=== PATIENT | female | born 1955 | race Two or more races ===

== ENCOUNTER 2016-10-29 11:59 | Inpatient (IN) | payer MEDICAID, OTHER ==
[~2016-10-29] VITALS: Ht 162.6 cm; Wt 68.4 kg
[2016-10-29 13:24] LABS: Basophils # (auto) 0.2 uL; Basophils % (auto) 2.1 % (0.0-2.0); Eosinophils # (auto) 0.1 uL; Eosinophils % (auto) 0.6 % (0.0-7.0); Hemoglobin 11.6 g/dL (12.2-16.2); Lymphocytes # (auto) 1.5 uL; Lymphocytes % (auto) 14.5 % (10.0-50.0); Mean Corpuscular Hemoglobin 30.9 pg (28.0-32.0); Mean Corpuscular Hgb Conc. 33.2 g/dL (32.0-36.0); Mean Corpuscular Volume 93.1 fL (80.0-100.0); Mean Platelet Volume 8.9 fL (7.4-10.4); Monocytes # (auto) 0.9 uL; Neutrophils # (auto) 7.8 uL; Neutrophils % (auto) 73.8 % (37.0-80.0); Platelet Count (auto) 423 10^3/uL (140-450); Red Cell Distribution Width 14.3 % (11.6-16.0); White Blood Cell 10.5 10^3/uL (4.4-10.8)
[2016-10-29 13:44] LABS: Albumin 2.2 g/dL (3.4-5.0); BUN/Creatinine Ratio 28.2; Bilirubin, Total 0.6 mg/dL (0.2-1.0); Calcium 8.3 mg/dL (8.5-10.1); Potassium 3.1 mmol/L (3.5-5.1); Total Protein 7.4 g/dL (6.4-8.2)
[2016-10-29 15:02] LABS: Urine Bilirubin Negative (Negative); Urine Color Yellow (Yellow); Urine Glucose Normal (Normal); Urine Ketone Negative (Negative); Urine Mucus FEW (None Seen); Urine Nitrite Negative (Negative); Urine RBC 10 /hpf (0 - 4); Urine Squamous Epithelial Cell FEW /hpf (<5); Urine pH 6.5 (5.0-8.0)
[2016-10-29 15:16] LABS: Urine Blood 1+ /uL (Negative)
[2016-10-29] MEDS ORDERED: SODIUM CHLORIDE 0.9% 1,000 ML IVB ONE (15:48)
[2016-10-29] MEDS ORDERED: cefTRIAXone 1GM/50ML D5W 50 ML IV ONE (16:00)
[2016-10-29] MEDS ORDERED: AZITHROMYCIN 500MG/D5W 250ML 250 ML IV ONE (17:30)
[2016-10-29] MEDS ORDERED: PIPERACILLIN-TAZOB 3.375GM 100 ML IV ONE (17:30)
[2016-10-29] MEDS ORDERED: POTASSIUM CHLORIDE 8 MEQ TAB PO ONE (17:45)
[2016-10-29] MEDS ORDERED: TEMAZEPAM 15 MG CAP PO PRN (17:45)
[2016-10-29] MEDS ORDERED: DOCUSATE SOD 100 MG CAP PO PRN (17:45)
[2016-10-29] MEDS ORDERED: ONDANSETRON HCL 4 MG/2 ML VIAL IV PRN (17:45)
[2016-10-29] MEDS ORDERED: ACETAMINOPHEN 325 MG TAB PO PRN (17:45)
[2016-10-29] MEDS ORDERED: MORPHINE SULF INJ 2 MG/ML SYRINGE 1ML IV PRN (17:45)
[2016-10-29] MEDS ORDERED: NITROGLYCERIN 0.4 MG SL TAB SL PRN (17:45)
[2016-10-29] MEDS: MULTIPLE VITAMIN TAB PO SCH (18:07)
[2016-10-29] MEDS: SODIUM CHLORIDE 0.9% 1,000 ML IV SCH (18:24)
[2016-10-29] MEDS: BOOST PLUS 8 ounce PO SCH ×2 (18:34→22:00)
[2016-10-29] MEDS: ALBUTEROL SULF 2.5 MG/0.5ML(0.5%) NEB SOLN NEB SCH (18:51)
[2016-10-29] MEDS: IPRATROPIUM BROM 0.5 MG/2.5ML INH SOL NEB SCH (18:51)
[2016-10-29 22:00] VITALS: BP 137/76
[2016-10-29] MEDS: HYDROcodone-ACET 5/325MG TAB PO PRN (22:27)
[2016-10-29] MEDS: FAMOTIDINE 20 MG TAB PO SCH (22:27)
[2016-10-29 23:02] VITALS: BP 137/76
[2016-10-30 00:06] VITALS: BP 137/76
[2016-10-30] MEDS: ALBUTEROL SULF 2.5 MG/0.5ML(0.5%) NEB SOLN NEB SCH ×4 (00:27→19:05)
[2016-10-30] MEDS: IPRATROPIUM BROM 0.5 MG/2.5ML INH SOL NEB SCH ×4 (00:27→19:05)
[2016-10-30] MEDS ORDERED: METOPROLOL TARTRATE 1MG/1ML-5ML VIAL IV ONE (01:30)
[2016-10-30] MEDS: SODIUM CHLORIDE 0.9% 1,000 ML IV SCH ×3 (02:04→20:53)
[2016-10-30 04:34] VITALS: BP 123/77
[2016-10-30] MEDS: BOOST PLUS 8 ounce PO SCH ×4 (05:07→20:52)
[2016-10-30] MEDS ORDERED: DIGOXIN (250MCG/ML) 2 ML AMPULE IV ONE ×3 (06:00→18:00)
[2016-10-30 06:41] LABS: Basophils # (auto) 0 uL; Basophils % (auto) 0.2 % (0.0-2.0); Eosinophils # (auto) 0 uL; Eosinophils % (auto) 0.5 % (0.0-7.0); Hematocrit 32.6 % (36.0-46.0); Hemoglobin 10.5 g/dL (12.2-16.2); Lymphocytes # (auto) 1.1 uL; Lymphocytes % (auto) 11.8 % (10.0-50.0); Mean Corpuscular Hemoglobin 31.2 pg (28.0-32.0); Mean Corpuscular Hgb Conc. 32.3 g/dL (32.0-36.0); Mean Corpuscular Volume 96.6 fL (80.0-100.0); Monocytes % (auto) 9.9 % (0.0-12.0); Neutrophils # (auto) 7.5 uL; Neutrophils % (auto) 77.6 % (37.0-80.0); Platelet Count (auto) 438 10^3/uL (140-450); Red Cell Distribution Width 14.4 % (11.6-16.0); White Blood Cell 9.7 10^3/uL (4.4-10.8)
[2016-10-30 06:52] LABS: Potassium 3.2 mmol/L (3.5-5.1)
[2016-10-30 06:57] LABS: BUN/Creatinine Ratio 21.4
[2016-10-30 07:16] LABS: Bilirubin, Total 0.4 mg/dL (0.2-1.0); Total Protein 6.6 g/dL (6.4-8.2)
[2016-10-30] MEDS: cefTRIAXone 1GM/50ML D5W 50 ML IV SCH (08:46)
[2016-10-30] MEDS ORDERED: POTASSIUM CHL 20 Meq TABLET PO ONE (11:15)
[2016-10-30] MEDS: MULTIPLE VITAMIN TAB PO SCH (12:21)
[2016-10-30] MEDS: AZITHROMYCIN 500MG/D5W 250ML 250 ML IV SCH (12:21)
[2016-10-30] MEDS: FAMOTIDINE 20 MG TAB PO SCH ×2 (12:21→20:51)
[2016-10-30] MEDS ORDERED: ENOXAPARIN SOD 80 MG/0.8ML SYRINGE SC ONE (12:45)
[2016-10-30 12:47] VITALS: BP 138/74
[2016-10-30 17:25] VITALS: BP 170/90
[2016-10-30 17:29] VITALS: BP 95/65
[2016-10-30] MEDS: HYDROcodone-ACET 5/325MG TAB PO PRN (20:50)
[2016-10-30] MEDS: METOPROLOL TARTRATE 25 MG TAB PO SCH (20:52)
[2016-10-30] MEDS: ENOXAPARIN SOD 80 MG/0.8ML SYRINGE SC SCH (20:53)
[2016-10-30 22:12] VITALS: BP 127/73
[2016-10-31] MEDS: IPRATROPIUM BROM 0.5 MG/2.5ML INH SOL NEB SCH ×4 (00:20→18:15)
[2016-10-31] MEDS: ALBUTEROL SULF 2.5 MG/0.5ML(0.5%) NEB SOLN NEB SCH ×4 (00:20→18:15)
[2016-10-31] MEDS: HYDROcodone-ACET 5/325MG TAB PO PRN ×2 (01:10→21:33)
[2016-10-31 04:58] VITALS: BP 121/56
[2016-10-31] MEDS: SODIUM CHLORIDE 0.9% 1,000 ML IV SCH (05:21)
[2016-10-31] MEDS: BOOST PLUS 8 ounce PO SCH ×4 (05:21→21:32)
[2016-10-31] MEDS: MORPHINE SULF INJ 2 MG/ML SYRINGE 1ML IV PRN (05:30)
[2016-10-31 05:44] LABS: BUN/Creatinine Ratio 11.1; Calcium 7.5 mg/dL (8.5-10.1)
[2016-10-31 08:30] VITALS: BP 126/73
[2016-10-31] MEDS ORDERED: DIGOXIN 0.25 MG TAB PO SCH (10:00)
[2016-10-31] MEDS: AZITHROMYCIN 500MG/D5W 250ML 250 ML IV SCH (10:20)
[2016-10-31] MEDS: cefTRIAXone 1GM/50ML D5W 50 ML IV SCH (10:20)
[2016-10-31] MEDS: MULTIPLE VITAMIN TAB PO SCH (10:21)
[2016-10-31] MEDS: FAMOTIDINE 20 MG TAB PO SCH ×2 (10:21→21:32)
[2016-10-31] MEDS: METOPROLOL TARTRATE 25 MG TAB PO SCH (10:21)
[2016-10-31] MEDS: ENOXAPARIN SOD 80 MG/0.8ML SYRINGE SC SCH ×2 (10:22→21:33)
[2016-10-31] MEDS ORDERED: POTASSIUM CHL 20 Meq TABLET PO ONE (11:30)
[2016-10-31] MEDS ORDERED: METOPROLOL TARTRATE 25 MG TAB PO ONE (12:00)
[2016-10-31] MEDS: CLOPIDOGREL BISULFATE 75 MG TAB PO SCH (12:12)
[2016-10-31 13:00] VITALS: BP 107/60
[2016-10-31] MEDS: ACETAMINOPHEN 500 MG TAB PO PRN ×2 (15:19→21:41)
[2016-10-31 16:59] VITALS: BP 102/64
[2016-10-31] MEDS: SOTALOL HCL 80 MG TAB PO SCH (21:32)
[2016-10-31 21:51] VITALS: BP 110/63
[2016-10-31] MEDS ORDERED: METOPROLOL TARTRATE 50 MG TAB PO SCH (22:00)
[2016-11-01] MEDS: IPRATROPIUM BROM 0.5 MG/2.5ML INH SOL NEB SCH ×5 (00:58→23:51)
[2016-11-01] MEDS: ALBUTEROL SULF 2.5 MG/0.5ML(0.5%) NEB SOLN NEB SCH ×5 (00:58→23:51)
[2016-11-01] MEDS ORDERED: DIGOXIN (250MCG/ML) 2 ML AMPULE IV ONE (02:15)
[2016-11-01] MEDS: DILTIAZEM HCL 25 MG/5 ML VIAL IV PRN ×2 (02:29→06:34)
[2016-11-01] MEDS: MORPHINE SULF INJ 2 MG/ML SYRINGE 1ML IV PRN (04:15)
[2016-11-01 05:23] VITALS: BP 127/85
[2016-11-01] MEDS: BOOST PLUS 8 ounce PO SCH ×4 (05:38→21:52)
[2016-11-01 07:19] LABS: BUN/Creatinine Ratio 19.4; Potassium 3.6 mmol/L (3.5-5.1)
[2016-11-01] MEDS: cefTRIAXone 1GM/50ML D5W 50 ML IV SCH (08:44)
[2016-11-01] MEDS: ACETAMINOPHEN 500 MG TAB PO PRN ×2 (08:47→21:52)
[2016-11-01 09:00] VITALS: BP 114/58
[2016-11-01] MEDS: SOTALOL HCL 80 MG TAB PO SCH (10:00)
[2016-11-01] MEDS: ENOXAPARIN SOD 80 MG/0.8ML SYRINGE SC SCH ×2 (10:00→21:53)
[2016-11-01] MEDS: CLOPIDOGREL BISULFATE 75 MG TAB PO SCH (10:01)
[2016-11-01] MEDS: MULTIPLE VITAMIN TAB PO SCH (10:01)
[2016-11-01] MEDS: FAMOTIDINE 20 MG TAB PO SCH ×2 (10:01→21:52)
[2016-11-01] MEDS: AZITHROMYCIN 500MG/D5W 250ML 250 ML IV SCH (10:01)
[2016-11-01] MEDS ORDERED: VANCOMYCIN PER PHARMACY 0 MG IV SCH (10:30)
[2016-11-01] MEDS: VANCOMYCIN 1GM/250ML D5W 250 ML IV SCH ×2 (11:14→23:19)
[2016-11-01 13:00] VITALS: BP 110/66
[2016-11-01 16:00] VITALS: BP 110/68
[2016-11-01] MEDS: AMIODARONE HCL 200 MG TAB PO SCH (21:52)
[2016-11-01 22:13] VITALS: BP 125/70
[2016-11-02 05:06] LABS: Basophils # (auto) 0 uL; Basophils % (auto) 0.3 % (0.0-2.0); Eosinophils # (auto) 0.1 uL; Eosinophils % (auto) 1.1 % (0.0-7.0); Hematocrit 30.8 % (36.0-46.0); Lymphocytes # (auto) 1.3 uL; Lymphocytes % (auto) 13.3 % (10.0-50.0); Mean Corpuscular Hemoglobin 30.6 pg (28.0-32.0); Mean Corpuscular Hgb Conc. 32.6 g/dL (32.0-36.0); Mean Corpuscular Volume 93.9 fL (80.0-100.0); Mean Platelet Volume 9.2 fL (7.4-10.4); Monocytes # (auto) 0.5 uL; Monocytes % (auto) 5.6 % (0.0-12.0); Neutrophils # (auto) 7.5 uL; Neutrophils % (auto) 79.7 % (37.0-80.0); Platelet Count (auto) 626 10^3/uL (140-450); Red Cell Distribution Width 14.1 % (11.6-16.0); White Blood Cell 9.4 10^3/uL (4.4-10.8)
[2016-11-02 05:21] LABS: Albumin 1.8 g/dL (3.4-5.0); BUN/Creatinine Ratio 18.5; Calcium 7.2 mg/dL (8.5-10.1); Potassium 3.3 mmol/L (3.5-5.1)
[2016-11-02 05:24] LABS: Bilirubin, Total 0.5 mg/dL (0.2-1.0); Total Protein 6.6 g/dL (6.4-8.2)
[2016-11-02 05:43] VITALS: BP 125/83
[2016-11-02] MEDS: BOOST PLUS 8 ounce PO SCH ×4 (05:43→22:06)
[2016-11-02] MEDS: ALBUTEROL SULF 2.5 MG/0.5ML(0.5%) NEB SOLN NEB SCH ×2 (06:39→12:52)
[2016-11-02] MEDS: IPRATROPIUM BROM 0.5 MG/2.5ML INH SOL NEB SCH ×2 (06:40→12:51)
[2016-11-02 08:00] VITALS: BP 136/69
[2016-11-02] MEDS: VANCOMYCIN 1GM/250ML D5W 250 ML IV SCH ×2 (10:17→23:01)
[2016-11-02] MEDS: ENOXAPARIN SOD 80 MG/0.8ML SYRINGE SC SCH (10:17)
[2016-11-02] MEDS: CLOPIDOGREL BISULFATE 75 MG TAB PO SCH (10:18)
[2016-11-02] MEDS: FAMOTIDINE 20 MG TAB PO SCH ×2 (10:18→22:06)
[2016-11-02] MEDS: AMIODARONE HCL 200 MG TAB PO SCH ×2 (10:18→22:06)
[2016-11-02] MEDS: MULTIPLE VITAMIN TAB PO SCH (10:18)
[2016-11-02 12:00] VITALS: BP 125/85
[2016-11-02 16:00] VITALS: BP 125/76
[2016-11-02 22:00] VITALS: BP 123/70
[2016-11-03 00:59] VITALS: BP 123/70
[2016-11-03 05:42] VITALS: BP 136/82
[2016-11-03] MEDS: BOOST PLUS 8 ounce PO SCH (05:58)
[2016-11-03] MEDS: ALBUTEROL SULF 2.5 MG/0.5ML(0.5%) NEB SOLN NEB SCH ×2 (07:02→18:17)
[2016-11-03] MEDS: IPRATROPIUM BROM 0.5 MG/2.5ML INH SOL NEB SCH ×2 (07:02→18:17)
[2016-11-03 08:24] VITALS: BP 110/69
[2016-11-03] MEDS ORDERED: FUROSEMIDE 20 MG/2 ML VIAL IV ONE (09:30)
[2016-11-03] MEDS ORDERED: POTASSIUM CHL 20 Meq TABLET PO ONE (09:30)
[2016-11-03] MEDS: FAMOTIDINE 20 MG TAB PO SCH ×2 (10:44→21:47)
[2016-11-03] MEDS: MULTIPLE VITAMIN TAB PO SCH (10:44)
[2016-11-03] MEDS: CLOPIDOGREL BISULFATE 75 MG TAB PO SCH (10:44)
[2016-11-03] MEDS: AMIODARONE HCL 200 MG TAB PO SCH ×2 (10:45→21:47)
[2016-11-03] MEDS: VANCOMYCIN 1,250 MG in D5W 5% 250 ML IV SCH ×2 (10:46→22:01)
[2016-11-03 13:00] VITALS: BP 117/74
[2016-11-03 16:55] VITALS: BP 116/69
[2016-11-03 21:07] VITALS: BP 116/69
[2016-11-04] MEDS: ALBUTEROL SULF 2.5 MG/0.5ML(0.5%) NEB SOLN NEB SCH ×4 (00:32→18:12)
[2016-11-04] MEDS: IPRATROPIUM BROM 0.5 MG/2.5ML INH SOL NEB SCH ×4 (00:32→18:12)
[2016-11-04 04:51] VITALS: BP 119/73
[2016-11-04 06:12] LABS: Basophils # (auto) 0 uL; Basophils % (auto) 0.4 % (0.0-2.0); Eosinophils # (auto) 0.2 uL; Eosinophils % (auto) 2.5 % (0.0-7.0); Hematocrit 32.1 % (36.0-46.0); Hemoglobin 10.6 g/dL (12.2-16.2); Lymphocytes # (auto) 1.1 uL; Lymphocytes % (auto) 15.9 % (10.0-50.0); Mean Corpuscular Hemoglobin 31.1 pg (28.0-32.0); Mean Corpuscular Volume 94.4 fL (80.0-100.0); Mean Platelet Volume 8.9 fL (7.4-10.4); Monocytes # (auto) 0.4 uL; Neutrophils # (auto) 5.4 uL; Neutrophils % (auto) 75.2 % (37.0-80.0); Platelet Count (auto) 711 10^3/uL (140-450); Red Cell Distribution Width 14.5 % (11.6-16.0); White Blood Cell 7.2 10^3/uL (4.4-10.8)
[2016-11-04 06:37] LABS: Albumin 1.9 g/dL (3.4-5.0); BUN/Creatinine Ratio 21.4; Calcium 7.9 mg/dL (8.5-10.1); Potassium 4.1 mmol/L (3.5-5.1)
[2016-11-04 06:40] LABS: Bilirubin, Total 0.2 mg/dL (0.2-1.0); Total Protein 6.9 g/dL (6.4-8.2)
[2016-11-04 08:30] VITALS: BP 119/83
[2016-11-04] MEDS ORDERED: cefTRIAXone 1GM/50ML D5W 50 ML IV ONE (10:30)
[2016-11-04] MEDS: MULTIPLE VITAMIN TAB PO SCH (10:31)
[2016-11-04] MEDS: CLOPIDOGREL BISULFATE 75 MG TAB PO SCH (10:31)
[2016-11-04] MEDS: AMIODARONE HCL 200 MG TAB PO SCH ×2 (10:31→21:40)
[2016-11-04] MEDS: FAMOTIDINE 20 MG TAB PO SCH ×2 (10:32→21:40)
[2016-11-04] MEDS: VANCOMYCIN 1,250 MG in D5W 5% 250 ML IV SCH ×2 (11:28→21:40)
[2016-11-04 12:30] VITALS: BP 131/84
[2016-11-04 16:59] VITALS: BP 112/68
[2016-11-04 17:00] VITALS: BP 112/68
[2016-11-04 21:13] VITALS: BP 112/68
[2016-11-05] MEDS: ALBUTEROL SULF 2.5 MG/0.5ML(0.5%) NEB SOLN NEB SCH ×4 (00:08→19:15)
[2016-11-05] MEDS: IPRATROPIUM BROM 0.5 MG/2.5ML INH SOL NEB SCH ×4 (00:08→19:15)
[2016-11-05 05:23] VITALS: BP 104/66
[2016-11-05 06:30] LABS: BUN/Creatinine Ratio 21.7; Calcium 8.1 mg/dL (8.5-10.1)
[2016-11-05 06:33] LABS: Bilirubin, Total 0.1 mg/dL (0.2-1.0); Total Protein 7.1 g/dL (6.4-8.2)
[2016-11-05 06:35] LABS: Basophils # (auto) 0 uL; Basophils % (auto) 0.5 % (0.0-2.0); Eosinophils # (auto) 0.2 uL; Hemoglobin 10.6 g/dL (12.2-16.2); Lymphocytes % (auto) 16.9 % (10.0-50.0); Mean Corpuscular Hgb Conc. 32.2 g/dL (32.0-36.0); Mean Corpuscular Volume 96.3 fL (80.0-100.0); Mean Platelet Volume 8.7 fL (7.4-10.4); Monocytes # (auto) 0.4 uL; Monocytes % (auto) 6.2 % (0.0-12.0); Neutrophils # (auto) 4.4 uL; Neutrophils % (auto) 73.4 % (37.0-80.0); Red Cell Distribution Width 14.4 % (11.6-16.0)
[2016-11-05 06:45] LABS: Platelet Count (auto) 764 10^3/uL (140-450)
[2016-11-05 09:24] VITALS: BP 116/67
[2016-11-05] MEDS: cefTRIAXone 1GM/50ML D5W 50 ML IV SCH (09:37)
[2016-11-05] MEDS: FAMOTIDINE 20 MG TAB PO SCH ×2 (09:38→21:55)
[2016-11-05] MEDS: AMIODARONE HCL 200 MG TAB PO SCH ×2 (09:38→21:55)
[2016-11-05] MEDS: MULTIPLE VITAMIN TAB PO SCH (09:38)
[2016-11-05] MEDS: CLOPIDOGREL BISULFATE 75 MG TAB PO SCH (09:38)
[2016-11-05] MEDS: VANCOMYCIN 1,250 MG in D5W 5% 250 ML IV SCH ×2 (11:48→23:41)
[2016-11-05 12:57] VITALS: BP 108/61
[2016-11-05] MEDS ORDERED: MICONAZOLE NITRATE 2 % VAGINAL CREAM 45 GM PV ONE (16:15)
[2016-11-05 16:34] VITALS: BP 125/76
[2016-11-05 21:03] VITALS: BP 125/76
[2016-11-05 22:00] VITALS: BP 103/65
[2016-11-06] MEDS: IPRATROPIUM BROM 0.5 MG/2.5ML INH SOL NEB SCH ×4 (00:29→14:11)
[2016-11-06] MEDS: ALBUTEROL SULF 2.5 MG/0.5ML(0.5%) NEB SOLN NEB SCH ×4 (00:29→14:11)
[2016-11-06 05:00] VITALS: BP 105/71
[2016-11-06 05:46] LABS: Basophils # (auto) 0 uL; Basophils % (auto) 0.4 % (0.0-2.0); DEFINITIVE VIEW TRANSMISSION; Eosinophils # (auto) 0.2 uL; Eosinophils % (auto) 3.3 % (0.0-7.0); Hematocrit 32.5 % (36.0-46.0); Hemoglobin 10.5 g/dL (12.2-16.2); Lymphocytes # (auto) 1.4 uL; Lymphocytes % (auto) 24.7 % (10.0-50.0); Mean Corpuscular Hemoglobin 30.7 pg (28.0-32.0); Mean Corpuscular Hgb Conc. 32.4 g/dL (32.0-36.0); Mean Corpuscular Volume 94.6 fL (80.0-100.0); Mean Platelet Volume 8.3 fL (7.4-10.4); Monocytes # (auto) 0.4 uL; Monocytes % (auto) 6.4 % (0.0-12.0); Neutrophils # (auto) 3.7 uL; Neutrophils % (auto) 65.2 % (37.0-80.0); Red Cell Distribution Width 14.7 % (11.6-16.0); White Blood Cell 5.6 10^3/uL (4.4-10.8)
[2016-11-06 06:00] LABS: Platelet Count (auto) 826 10^3/uL (140-450)
[2016-11-06 06:15] LABS: Albumin 2.1 g/dL (3.4-5.0); BUN/Creatinine Ratio 23.3; Calcium 8.3 mg/dL (8.5-10.1)
[2016-11-06 06:18] LABS: Bilirubin, Total 0.2 mg/dL (0.2-1.0); Total Protein 7.4 g/dL (6.4-8.2)
[2016-11-06 09:17] VITALS: BP 110/70
[2016-11-06] MEDS: FAMOTIDINE 20 MG TAB PO SCH (09:45)
[2016-11-06] MEDS: CLOPIDOGREL BISULFATE 75 MG TAB PO SCH (09:46)
[2016-11-06] MEDS: AMIODARONE HCL 200 MG TAB PO SCH (09:46)
[2016-11-06] MEDS: MULTIPLE VITAMIN TAB PO SCH (09:46)
[2016-11-06] MEDS: cefTRIAXone 1GM/50ML D5W 50 ML IV SCH (09:49)
[2016-11-06] MEDS: VANCOMYCIN 1,250 MG in D5W 5% 250 ML IV SCH (11:54)
[2016-11-06 12:21] LABS: Hepatitis B Surface Antibody Positive
[2016-11-06 12:56] VITALS: BP 102/69
[2016-11-06 13:54] VITALS: BP 110/69
[2016-11-06 15:01] VITALS: BP 102/69
[2016-11-06] MEDS ORDERED: PRO-STAT 64 30ML PO SCH (18:00)
== END 2016-11-06 15:00 | disposition home or self-care (01) | DRG 720 ==
LOC: ER 12:04 → TELE 12:05 → CENTRAL 21:45 → TELE-CENTR 10-30 02:30
PROVIDERS: ADMIT Internal Medicine; ATTEND Internal Medicine
DX: A41.02 Sepsis due to Methicillin resistant Staphylococcus aureus (principal); J96.00 Acute respiratory failure, unspecified whether with hypoxia or hypercapnia; E43 Unspecified severe protein-calorie malnutrition; J90 Pleural effusion, not elsewhere classified; J18.9 Pneumonia, unspecified organism; E83.51 Hypocalcemia; I07.1 Rheumatic tricuspid insufficiency; K76.89 Other specified diseases of liver; I48.92 Unspecified atrial flutter; I48.91 Unspecified atrial fibrillation; E86.0 Dehydration; E87.6 Hypokalemia; N39.0 Urinary tract infection, site not specified; D47.3 Essential (hemorrhagic) thrombocythemia; D63.8 Anemia in other chronic diseases classified elsewhere; J45.909 Unspecified asthma, uncomplicated; I49.3 Ventricular premature depolarization; Z79.02 Long term (current) use of antithrombotics/antiplatelets; Z82.49 Family history of ischemic heart disease and other diseases of the circulatory system; Z88.6 Allergy status to analgesic agent; Z83.3 Family history of diabetes mellitus; Z68.25 Body mass index [BMI] 25.0-25.9, adult
CPT/HCPCS: 36415; 71020; 71250; 74020; 76705; 80048; 80053; 80202; 81001; 82962; 83605; 84484; 85025; 86704; 86706; 86708; 86803; 87040; 87070; 87077; 87086; 87186; 87205; 87340; 87493; 93005; 93306; 94640; 96361; 96365; 96375; J0696; J2405; J2543; J7060

== ENCOUNTER → 2016-11-28 | Outpatient (CLI) | payer MEDICAID ==
[2016-11-28 09:43] LABS: Urine RBC None Seen /hpf (0 - 4)
[2016-11-28 10:03] LABS: Urine Bilirubin Negative (Negative); Urine Blood Negative /uL (Negative); Urine Color Yellow (Yellow); Urine Glucose Normal (Normal); Urine Ketone Negative (Negative); Urine Nitrite Negative (Negative); Urine Squamous Epithelial Cell FEW /hpf (<5); Urine Urobilinogen Normal (Negative); Urine pH 7.5 (5.0-8.0)
[2016-11-28 10:31] LABS: DEFINITIVE VIEW TRANSMISSION; Eosinophils # (auto) 0.1 uL; SUSPECT VIEW TRANSMISSION; White Blood Cell 2.4 10^3/uL (4.4-10.8)
[2016-11-28 10:56] LABS: Albumin 3.4 g/dL (3.4-5.0); BUN/Creatinine Ratio 15.6; Bilirubin, Total 0.3 mg/dL (0.2-1.0); Calcium 8.4 mg/dL (8.5-10.1); Potassium 3.4 mmol/L (3.5-5.1)
[2016-11-28 11:09] LABS: Basophils # (auto) 0.1 uL; Basophils % (auto) 2.9 % (0.0-2.0); Eosinophils % (auto) 4.7 % (0.0-7.0); Hematocrit 41.4 % (36.0-46.0); Hemoglobin 13.3 g/dL (12.2-16.2); Lymphocytes # (auto) 0.9 uL; Lymphocytes % (auto) 37.9 % (10.0-50.0); Mean Corpuscular Hemoglobin 31.1 pg (28.0-32.0); Mean Corpuscular Hgb Conc. 32.1 g/dL (32.0-36.0); Mean Corpuscular Volume 96.9 fL (80.0-100.0); Mean Platelet Volume 8.5 fL (7.4-10.4); Monocytes # (auto) 0.2 uL; Monocytes % (auto) 9.3 % (0.0-12.0); Neutrophils # (auto) 1.1 uL; Neutrophils % (auto) 45.2 % (37.0-80.0); Platelet Count (auto) 308 10^3/uL (140-450); Red Cell Distribution Width 14.7 % (11.6-16.0)
== END | disposition home or self-care (01) ==
LOC: LAB 08:50
DX: J15.212 Pneumonia due to Methicillin resistant Staphylococcus aureus (principal)
CPT/HCPCS: 36415; 80053; 80061; 81001; 84443; 85025; 85652